=== PATIENT | female | born 1995 | race Hispanic/Latino ===

== ENCOUNTER 2024-01-03 21:23 | Emergency (ER) | payer OTHER ==
[2024-01-03] MEDS ORDERED: Ipratropium/Albuterol 3 ML NEB ONE (23:46)
[2024-01-04] MEDS ORDERED: predniSONE 20 MG TAB ONE (00:16)
== END 2024-01-04 00:12 | disposition home or self-care (01) ==
LOC: CSHERS 21:23
DX: J45.909 Unspecified asthma, uncomplicated (principal); F17.210 Nicotine dependence, cigarettes, uncomplicated
CPT/HCPCS: 71045; 94640; J7512; J7620